=== PATIENT | male | born 1995 | race Two or more races ===

== ENCOUNTER 2024-05-20 17:31 | Emergency (ER) | payer OTHER ==
[~2024-05-20] VITALS: Ht 170.2 cm; Wt 65.8 kg
[2024-05-20] MEDS ORDERED: CEFTRIAXONE SODIUM 1,000 MG VIAL IM ONE (18:30)
[2024-05-20] MEDS ORDERED: DIPHTH,PERTUSS(ACELL),TET VAC 0.5 ML SYRINGE IM ONE ×2 (18:30→18:39)
[2024-05-20] MEDS ORDERED: CEFTRIAXONE SODIUM 1,000 MG VIAL ONE (18:39)
[2024-05-20] MEDS ORDERED: BACITRACIN-NEOMYCIN-POLYMYXIN 0.9 GM PACKET TOP ONE (19:24)
== END 2024-05-20 19:32 | disposition home or self-care (01) ==
LOC: ER 17:34
DX: S00.01XA Abrasion of scalp, initial encounter (principal); W19.XXXA Unspecified fall, initial encounter; Y93.89 Activity, other specified; Y92.830 Public park as the place of occurrence of the external cause; Y99.8 Other external cause status
CPT/HCPCS: 96372; 99282; J0696; J3490